=== PATIENT | female | born 1965 | race Caucasian/White ===

== ENCOUNTER 2017-04-11 05:29 | Day surgery (SDC) | payer BC ==
[2017-04-08 12:33] LABS: APPEARANCE,URINE CLEAR; BILIRUBIN,URINE NEGATIVE (NEGATIVE); GLUCOSE, URINE NEGATIVE (NEGATIVE); KETONES,URINE NEGATIVE (NEGATIVE); LEUKOCYTE ESTERASE,URINE NEGATIVE (NEGATIVE); NITRITE,URINE NEGATIVE (NEGATIVE); PROTEIN,URINE NEGATIVE (NEGATIVE); URINE SPECIFIC GRAVITY 1.018
[2017-04-08 12:35] LABS: HEMATOCRIT 38.8 % (36.0-47.0); HEMOGLOBIN 13.2 g/dL (12.0-15.5); HGB HCT DIFFERENCE 0.8; MEAN CORPUSCULAR HGB CONC 33.9 g/dL (32.0-36.0); MEAN CORPUSCULAR VOLUME 85 fl (80-97); RED BLOOD COUNT 4.55 10^6/uL (3.72-5.28); WHITE BLOOD COUNT 13.4 10^3/uL (4.0-10.5)
[~2017-04-11 05:29] MED LIST: LACTATED RINGERS 1000 ML IV PRN; LIDOCAINE 0.5% INJ-PF (5 MG/ML) 50 ML SDV SUBCUT PRN
[2017-04-11] MEDS ORDERED: EPHEDRINE SULFATE INJ 50 MG/1 ML AMPULE ONE (07:11)
[2017-04-11] MEDS ORDERED: DEXAMETHASONE SOD PHOSPHATE INJ 4 MG/1 ML VIAL ONE (07:11)
[2017-04-11] MEDS ORDERED: MIDAZOLAM 2 MG/2 ML INJ ONE (07:11)
[2017-04-11] MEDS ORDERED: ONDANSETRON HCL INJ/PF 4 MG/2 ML SDV ONE (07:11)
[2017-04-11] MEDS ORDERED: HYDROMORPHONE HCL INJ/PF 2 MG/ML AMPULE ONE (07:11)
[2017-04-11] MEDS ORDERED: PROPOFOL INJ 200 MG/20 ML VIAL IV ONE (07:12)
[2017-04-11] MEDS ORDERED: PROMETHAZINE HCL INJ 25 MG/1 ML VIAL IV PRN (08:01)
[2017-04-11] MEDS ORDERED: DIPHENHYDRAMINE HCL 50 MG/ML VIAL IV PRN (08:01)
[2017-04-11] MEDS ORDERED: FENTANYL CITRATE INJ/PF 100 MCG/2 ML AMPUL IV PRN ×3 (08:01)
--- NOTE | 2017-04-11 08:16 | Operative Report ---
Operative Report DATE OF SURGERY: 04/11/17 PREOPERATIVE DIAGNOSIS: Postmenopausal bleeding POSTOPERATIVE DIAGNOSIS: Atrophic uterine lining with a small lesion on the posterior wall of the uterus OPERATION: D&C hysteroscopy Myosure SURGEON: NILS RANDLE ANESTHESIA: GA TISSUE REMOVED OR ALTERED: Endocervical curettings and Myosure biopsy of posterior uterine wall COMPLICATIONS: None ESTIMATED BLOOD LOSS: 10 cc INTRAOPERATIVE FINDINGS: Mostly empty appearing uterine cavity a small vascular lesion was seen on the posterior uterine wall and this was removed in its entirety using the MYOSURE PROCEDURE: Patient was taken to the OR placed in supine position. Anesthesia was induced. She is placed in dorsolithotomy position using Fran stirrups. Her perineum and vagina were prepared and draped in sterile fashion her bladder was drained with a red rubber catheter. Speculum was placed in the anterior lip cervix was grasped with a tenaculum. The uterus sounded to 8 cm before and after the case. The cervix was dilated. Endocervical curettings were obtained. The hysteroscope was placed in the uterine cavity was viewed. Mostly atrophic uterine cavity was visualized. There is a small vascular lesion on the posterior wall of the uterus and this was removed in its entirety using the Myosure. All specimens were sent for pathology. At this point all instruments were removed. She was placed back in supine position brought out of anesthesia and taken to recovery room in stable condition.
[2017-04-11] MEDS ORDERED: ACETAMINOPHEN 100 ML IV ONE (08:25)
[2017-04-11] MEDS ORDERED: KETOROLAC TROMETHAMINE INJ/PF 30 MG/1 ML SDV IV PRN (08:38)
[2017-04-11] MEDS ORDERED: OXYCODONE-ACETAMINOPHEN 5-325 MG TABLET PO PRN ×2 (08:39)
[2017-04-11] MEDS ORDERED: IBUPROFEN 800 MG TABLET PO PRN (08:39)
[2017-04-11 13:02] VITALS: BP 108/71
== END 2017-04-11 10:20 | disposition home or self-care (01) ==
LOC: OROUT 05:29
PROVIDERS: ATTEND Obstetrics & Gynecology
PROC: 0UDB8ZX Extraction of Endometrium, Via Natural or Artificial Opening Endoscopic, Diagnostic (ICD-10-PCS; 2017-04-11)
PROC: 0UB98ZX Excision of Uterus, Via Natural or Artificial Opening Endoscopic, Diagnostic (ICD-10-PCS; principal; 2017-04-11 07:30)
DX: N84.0 Polyp of corpus uteri (principal); N95.0 Postmenopausal bleeding; E11.9 Type 2 diabetes mellitus without complications; J45.909 Unspecified asthma, uncomplicated; E66.9 Obesity, unspecified; F90.9 Attention-deficit hyperactivity disorder, unspecified type; Z79.899 Other long term (current) drug therapy; Z79.84 Long term (current) use of oral hypoglycemic drugs; Z68.41 Body mass index [BMI] 40.0-44.9, adult
CPT/HCPCS: 36415; 82962; 85027; 81025; 81001; 88305 ×2; 58558; J2250; J1100; J1170; J2405; J2704; J0131; 952; J3490

== ENCOUNTER 2019-06-29 14:52 | Emergency (ER) | payer BC ==
[2019-06-29 16:22] VITALS: BP 127/88
--- NOTE | 2019-06-29 18:14 | ER Document Report ---
ED Blood Sugar Problem - General Chief Complaint: High Blood Sugar Stated Complaint: BLOOD SUGAR PROBLEM/DIZZINESS Time Seen by Provider: 06/29/19 15:48 Primary Care Provider: LISANDRO LANG DO [Primary Care Provider] - Follow up as needed Mode of Arrival: Ambulatory Information source: Patient TRAVEL OUTSIDE OF THE [place] IN LAST 30 DAYS: Yes - HPI Notes: Patient presents due to having high blood sugar. She states she was recently diagnosed with diabetes and that she is being treated with a once a week shot but does not know the name of the shot. She states today she was checking her blood sugars at home and got up to 345 and she became concerned and came to the emergency department. She states earlier in the day she was feeling slightly dizzy but currently has no symptoms. She states she feels back to normal and that she thinks she can go home. She states she believes that her blood sugar is now dropped back lower. Patient symptoms of dizziness and a sound as if they were transient. They were very brief. Nothing on the made them better or worse. There is no known radiation of the symptoms. - Related Data Allergies/Adverse Reactions: NSAIDS (Non-Steroidal Anti-Inflamma Adverse Reaction (Verified 04/11/17 08:30) Past Medical History - General Information source: Patient - Social History Smoking Status: Never Smoker Frequency of alcohol use: None Drug Abuse: None Family History: Reviewed & Not Pertinent Patient has suicidal ideation: No Patient has homicidal ideation: No - Past Medical History Cardiac Medical History: Denies: Hx Coronary Artery Disease, Hx Heart Attack, Hx Hypertension Pulmonary Medical History: Reports: Hx Asthma - albuterol, Hx Bronchitis - hx of when smoking , Hx Pneumonia Denies: Hx COPD Neurological Medical History: Denies: Hx Cerebrovascular Accident, Hx Seizures Musculoskeletal Medical History: Denies Hx Arthritis - Immunizations Hx Diphtheria, Pertussis, Tetanus Vaccination: Yes Review of Systems - Review of Systems Constitutional: Weakness. denies: Chills, Fever Cardiovascular: denies: Chest pain, Palpitations Respiratory: denies: Cough, Short of breath -: Yes All other systems reviewed and negative Physical Exam - Vital signs Vitals: Temp Pulse Resp BP Pulse Ox 98.1 F 77 17 127/88 H 97 06/29/19 16:21 06/29/19 16:21 06/29/19 16:21 06/29/19 16:21 06/29/19 16:21 Interpretation: Normal - General General appearance: Appears well, Alert - HEENT Head: Normocephalic, Atraumatic Eyes: Normal Pupils: PERRL - Respiratory Respiratory status: No respiratory distress Chest status: Nontender Breath sounds: Normal Chest palpation: Normal - Cardiovascular Rhythm: Regular Heart sounds: Normal auscultation Murmur: No - Abdominal Inspection: Normal Distension: No distension Bowel sounds: Normal Tenderness: Nontender Organomegaly: No organomegaly - Back Back: Normal, Nontender - Extremities General upper extremity: Normal inspection, Nontender, Normal color, Normal ROM, Normal temperature General lower extremity: Normal inspection, Nontender, Normal color, Normal ROM, Normal temperature, Normal weight bearing. No: Thalia's sign - Neurological Neuro grossly intact: Yes Cognition: Normal Orientation: AAOx4 Evie Coma Scale Eye Opening: Spontaneous [place] Coma Scale Verbal: Oriented Evie Coma Scale Motor: Obeys Commands Evie Coma Scale Total: 15 Speech: Normal Motor strength normal: LUE, RUE, LLE, RLE Sensory: Normal - Psychological Associated symptoms: Normal affect, Normal mood - Skin Skin Temperature: Warm Skin Moisture: Dry Skin Color: Normal Course - Re-evaluation Re-evalutation: 06/29/19 18:12 I informed patient that we will check her laboratories. I then received a phone call from a doctor. While I was talking with a doctor one of the techs interrupted me to say that room 13 wanted to leave. I asked them to inform her that I would be there as soon as I finished the phone call. However before I could finish the phone call patient approached the nursing station and said that she was not going to wait any longer, that she felt fine. And that she was going home. Therefore patient left AGAINST MEDICAL ADVICE but before I could come discuss any type of risk and benefits with her. - Vital Signs Vital signs: Temp Pulse Resp BP Pulse Ox 98.1 F 77 17 127/88 H 97 06/29/19 16:21 06/29/19 16:21 06/29/19 16:21 06/29/19 16:21 06/29/19 16:21 Discharge - Discharge Clinical Impression: Hyperglycemia, Left against medical advice Condition: Fair Disposition: AGAINST MEDICAL ADVICE Referrals: LISANDRO LANG, [Primary Care Provider] - Follow up as needed
== END 2019-06-29 17:43 | disposition left against medical advice (07) ==
LOC: ER 14:52
DX: E11.65 Type 2 diabetes mellitus with hyperglycemia (principal); R53.1 Weakness; J45.909 Unspecified asthma, uncomplicated; Z53.29 Procedure and treatment not carried out because of patient's decision for other reasons
CPT/HCPCS: 82962; 99283